=== PATIENT | female | born 1985 | race African-American/Black ===

== ENCOUNTER 2021-03-02 12:10 | Emergency (ER) | payer OTHER ==
[~2021-03-02] VITALS: Ht 157.5 cm; Wt 59.4 kg
[2021-03-02] MEDS ORDERED: MEDROLPACK PO (16:05)
[2021-03-02] MEDS ORDERED: ATARAX25 MG PO (16:05)
[2021-03-02] MEDS ORDERED: ZYRTEC10 M3 PO (16:05)
[2021-03-02] MEDS ORDERED: DUI500 PO (16:05)
== END 2021-03-02 16:14 | disposition home or self-care (01) ==
LOC: ER 12:10
DX: R21 Rash and other nonspecific skin eruption (principal); T78.49XA Other allergy, initial encounter